=== PATIENT | female | born 1965 | race Caucasian/White ===

== ENCOUNTER 2024-09-01 14:43 | Outpatient (CLI) | payer OTHER, SELFPAY | END 2024-09-01 14:44 | disposition home or self-care (01) | LOC: NFLDREF 09-03 07:06 | PROVIDERS: PCP Nurse Practitioner Family; Referring Provider Family Medicine; Visit Provider Nurse Practitioner Family | DX: I10 Essential (primary) hypertension (principal); F42.9 Obsessive-compulsive disorder, unspecified; Z13.6 Encounter for screening for cardiovascular disorders | CPT/HCPCS: 80053; 80061 ==

== ENCOUNTER 2025-02-15 09:18 | Outpatient (CLI) | payer OTHER, SELFPAY | END 2025-02-15 09:19 | disposition home or self-care (01) | PROVIDERS: PCP Nurse Practitioner Family; Visit Provider Nurse Practitioner Family | DX: R76.89 Other specified abnormal immunological findings in serum (principal) | CPT/HCPCS: 86038; 86039; 86140; 86431 ==